=== PATIENT | male | born 1950 | race Caucasian/White ===

== ENCOUNTER 2020-11-20 11:48 | Emergency (ER) | payer OTHER ==
[~2020-11-20] VITALS: Ht 177.8 cm; Wt 82.6 kg
[2020-11-20] MEDS ORDERED: ERLEADA60 MG (11:56)
[2020-11-20] MEDS ORDERED: MICARDIS40 MG (11:56)
== END 2020-11-20 21:05 | disposition home or self-care (01) ==
LOC: ER 11:48
DX: N32.89 Other specified disorders of bladder (principal); R30.0 Dysuria; R33.8 Other retention of urine; R10.31 Right lower quadrant pain; I10 Essential (primary) hypertension; Z85.46 Personal history of malignant neoplasm of prostate

== ENCOUNTER 2021-05-15 07:04 | Day surgery (SDC) | payer OTHER ==
[~2021-05-15 07:04] MED LIST: ERLEADA60 MG; MICARDIS40 MG; NORVASC2.5 M1 PO
== END 2021-05-15 16:58 | disposition home or self-care (01) ==
LOC: CIR.AMB 07:04
PROVIDERS: ATTEND Specialist
DX: K40.90 Unilateral inguinal hernia, without obstruction or gangrene, not specified as recurrent (principal); D17.5 Benign lipomatous neoplasm of intra-abdominal organs; Z20.822 Contact with and (suspected) exposure to COVID-19